=== PATIENT | male | born 1980 | race Caucasian/White ===

== ENCOUNTER 2020-04-26 17:06 | Emergency (ER) | payer OTHER ==
[~2020-04-26] VITALS: Ht 170.2 cm; Wt 63.5 kg
[2020-04-26] MEDS ORDERED: CEPH500 PO (20:19)
== END 2020-04-26 20:36 | disposition home or self-care (01) ==
LOC: ER 17:06
DX: L03.011 Cellulitis of right finger (principal); F41.9 Anxiety disorder, unspecified; R59.0 Localized enlarged lymph nodes
CPT/HCPCS: 99282; A9270-GY